=== PATIENT | female | born 1990 | race Caucasian/White ===

== ENCOUNTER 2019-11-02 17:13 | Emergency (ER) | payer BC ==
[~2019-11-02] VITALS: Ht 165.1 cm; Wt 66.7 kg
[2019-11-02 17:33] VITALS: Ht 165.1 cm; Wt 66.7 kg
[2019-11-02 18:31] LABS: PLATELET COUNT 233 x10^3mcL (130-400); RED CELL DISTRIBUTION WIDTH 12.8 % (11.5-14.5)
[2019-11-02 19:55] VITALS: BP 100/50
== END 2019-11-02 19:55 | disposition home or self-care (01) ==
LOC: ED 17:13
PROVIDERS: Emergency Medicine
DX: N93.9 Abnormal uterine and vaginal bleeding, unspecified (principal)